=== PATIENT | female | born 1990 | race Caucasian/White ===

== ENCOUNTER 2016-12-29 08:52 | Inpatient (IN) | payer MEDICAID ==
[~2016-12-29] VITALS: Ht 157.5 cm; Wt 76.7 kg
[2016-12-29] MEDS ORDERED: IRON325 M1 PO (13:50)
[2016-12-29] MEDS ORDERED: PRENATAL 11 PO (13:50)
[2016-12-30] VITALS (12 sets, daily range): BP systolic 128–158; BP diastolic 71–99
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
[2016-12-30 06:19] LABS: BARBITURATES NEGATIVE (NEGATIVE); COCAINE NEGATIVE (NEGATIVE); METHADONE NEGATIVE (NEGATIVE); OXCYCODONE NEGATIVE (NEGATIVE); TETRAHYDROCANNABIONOL NEGATIVE (NEGATIVE); TRICYLIC ANTIDEPRESSANTS NEGATIVE (NEGATIVE)
--- NOTE | 2016-12-30 07:15 | NUR ---
PT RESTING, TRYING TO SLEEP. DISCUSSED PLAN OF CARE FOR TODAY, PT VERBALIZED UNDERSTANDING. STATES SHE DESIRES TO SLEEP AT THIS TIME. PT TO CALL IF SHE NEEDS ANYTHING.
--- NOTE | 2016-12-30 09:17 | NUR ---
IVF STARTED PER ORDER. RN CLIPPERS USED TO SHAVE SUPRAPUBIC AREA. DISCUSSED WITH PT THAT OR MIGHT WANT TO DO EARLIER, POSSIBLY AT 10:30AM. WAITING ON OR.
--- NOTE | 2016-12-30 10:00 | NUR ---
OR MADE US AWARE WILL BE DONE AT 12:30.
--- NOTE | 2016-12-30 11:30 | NUR ---
PEPCID AND REGLAN GIVEN AT THIS TIME IN PREPARATION FOR AT 1230. HOWEVER OR STAFF IS UP HERE AT THIS TIME TO GET PT THEY MOVED THE TO 1200. UNABLE TO DO NST BECAUSE OF EARLY TRANSFER OF THE PT TO MAIN OR DOWNSTAIRS. FHR WAS ULTRASOUND AT 135-145. IV BOLUS STARTED. BANUELOS WILL BE PLACED DOWNSTAIRS PER OR STAFF DUE TO EARLY PT REGIONAL DIRECTOR OF FINANCE.
--- NOTE | 2016-12-30 11:35 | NUR ---
PT LEFT TO MAIN OR DOWNSTAIRS AT THIS TIME WITH OR STAFF.
--- NOTE | 2016-12-30 14:45 | NUR ---
RECEIVED CARE OF PT. TRANSFERRED TO ROOM 207 VIA STRETCHER BY Gallito SKYRN AND EVENS SevillaRN. PT TRANSFERRED TO BED WITH COMPLAINT OF PAIN. RATING PAIN 8/10 AT INCISION. LIGHT LOCHIA NOTED, LÓPEZ CARE DONE IN BED. fUNDUS FIRM AT 2 ABOVE UMBILICUS. SCD'S APPLIED. ASSESSMENT CHARTED. PLAN OF CARE REVIEWED. PT ASKING FOR SODA. ICE WATER GIVEN. PT ENCOURAGED TO DRINK SMALL SIPS TO AVOID NAUSEA. VITAL SIGNS CHARTED. BANUELOS DRAINING CLEAR YELLOW URINE. ENCOURAGED TO COUGH AND DEEP BREATHE. INSTRUCTED TO MOVE TO SIDES WHILE IN BED. CALL LIGHT WITHIN REACH.
--- NOTE | 2016-12-30 16:45 | NUR ---
Pt with trickling at this time. Moderate rubra lochia noted. Fundus firm with massage, no blood clots. Pat care done in bed, clean pads applied. Fundus remains firm at 2 above umbilicus. No trickling of blood noted at this time. Pt instructed to call nurse if she feels trickling or gushing of fluid from perineum. Call light within reach. Significant other at bedside.
--- NOTE | 2016-12-30 18:08 | NUR ---
Pt tolerating full liquid dinner. Will continue to monitor.
--- NOTE | 2016-12-30 18:30 | NUR ---
CBC DRAWN FROM LEFT HAND. RESULTS PENDING. FAMILY IN ROOM AT THIS TIME.
--- NOTE | 2016-12-30 18:50 | NUR ---
REPORT GIVEN TO ONCOMING SHIFT. FAMILY IN ROOM.
--- NOTE | 2016-12-30 18:50 | NUR ---
REPORT RECEIVED FROM SINAN HOOKER RN ON PT STATUS. PT RESTING IN BED HER . STATES PAIN IS 5/10 ON RT LOWER ABDOMEN. OFFERED HEAT OR COLD PACK. REFUSES. RECEIVED TORADOL AT 1408 IN PACU. BANUELOS CATHETER DRAINING CLEAR YELLOW URINE. IV INFUSING PER MED PUMP AT 125CC/HR. SCD'S IN PLACE.
[2016-12-30 19:06] LABS: HEMATOCRIT 27.4 % (37.0-47.0); HEMOGLOBIN 9.1 g/dl (12.0-16.0); IMMATURE GRANULOCYTES 1.1 % (0.0-1.0); MEAN CELL VOLUME 91.6 fL CALC (80.0-100.0); MEAN CORPUSCULAR HGB 30.4 pG CALC (26.0-32.0); MEAN CORPUSCULAR HGB CONC 33.2 g/L CALC (32.0-36.0); NEUT# 9.86 thou/uL (2.00-7.15); RED BLOOD COUNT 2.99 mill/uL (4.20-5.60); RED CELL DISTRI WIDTH 14.6 % (11.5-15.5)
--- NOTE | 2016-12-31 02:01 | NUR ---
PT ASLEEP AT THIS TIME. NO SIGNS OF DISTRESS NOTED. RESPIRATIONS EVEN AND UNLABORED. ASSESSMENT DOCUMENTED. SAFETY MEASURES IN PLACE. CALL LIGHT WITHIN REACH.
--- NOTE | 2016-12-31 05:00 | NUR ---
PT AWAKE AND HAS NO COMPLAINTS. BED IN LOW POSITION AND CALL LIGHT WITHIN REACH. INFANT TO NURSERY.
--- NOTE | 2016-12-31 05:30 | NUR ---
PT. ASSISTED OOB TO VOID. STATED THAT SHE HAD MINIMAL PAIN AND FELT BETTER BEING OUT OF BED.BANUELOS CATH DRAINING CLEAR URINE TO BAG. PERICARE DEMONSTRATED AND PT. RETURNED DEMO. SATISFACTORILY. PT. TOLERATED BEING OUT OF BED FOR THE FIRST TIME SINCE SURGERY.
[2016-12-31 05:48] VITALS: BP 129/84
[2016-12-31 07:19] VITALS: BP 126/82
--- NOTE | 2016-12-31 08:20 | NUR ---
ASSESMENT IS COMPLETED: PT IS VERY WEEPY THIS AM, BANUELOS INTACT. C/O BEING CLAUSTROPHOBIC, WILL OPEN THE DOOR . IV SITE IS FREE FROM REDNESS OR EDEMA. FAMILY IN THE ROOM. CONITNUE TO OBSERVE AND MONITOR.
--- NOTE | 2016-12-31 12:00 | NUR ---
PT ABLE TO GET IN A SHOWER. AND REMOVED THE TAPE. HAS A LOW THRESHOLD FOR PAIN. FAMILY IN THE ROOM. CONITNUE TO OSBERVE AND MONITOR. PT DID VOID MODERATE AMOUNT OF BLOOD CLOTS. THEN WAS ABLE TO GET IN THE SHOWER.
--- NOTE | 2016-12-31 13:00 | NUR ---
PT CONTINUES TO WEEP DUE TO PAIN. GAVE AN ICE PACK TO HER PAIN AREA. THEN EXPLAINED TO TAKE OFF IN 20 MINUTES. THEN IN 30 MINUTES CAN APPLY HEAT TO THE AREA. VERBALIZED UNDERSTANDING
--- NOTE | 2016-12-31 14:13 | NUR ---
PAIN MEDICATION GIVEN AND ENCOURAGED TO AMBULATE. FEEDING INFANT AT THIS TIME,
[2016-12-31] MEDS ORDERED: PRE-NATAL PO (14:42)
[2016-12-31 15:23] VITALS: BP 161/84
[2016-12-31 15:44] VITALS: BP 138/87
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
--- NOTE | 2016-12-31 18:58 | NUR ---
RECEIVED BEDSIDE REPORT FROM BELINDA DE LEON RN ON PT STATUS. PT TRYING TO BREASTFEED . BED IN LOW POSITION AND CALL LIGHT WITHIN REACH. STATES PAIN IS 2/10. FAMILY AT BEDSIDE.
--- NOTE | 2016-12-31 18:58 | NUR ---
in bed attempting to breastfeed. admits to pain relief. family at bedside. end of shift report given to aparna woody.
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
[2016-12-31 22:11] VITALS: BP 141/91
--- NOTE | 2016-12-31 22:20 | NUR ---
PT REQUESTS STRONGER PAIN MEDICATION. MEDICATED WITH LORTAB. SEE MED E-MAR FOR DETAILS. USES RESTROOM. GAIT STEADY, SLOW AND EVEN. DENIES DIZZINESS. PT CONTINUES TO BE UPSET. HAS NO FAMILY OR FRIENDS WITH HER TONIGHT. CRYING FREQUENTLY TO BREASTFEED. THIS IS UPSETTING PT ALSO. PT HAS BLOOD BLISTER ON LEFT NIPPLE. USING LANOLIN CREAM. REASSURANCE GIVEN TO PT FROM ALBERTO HUFF.
--- NOTE | 2016-12-31 23:45 | NUR ---
PT SLEEPING. NO SIGNS OF DISTRESS. RESP EVEN AND UNLABORED. SLEEPING IN CRIB NEXT TO MOTHER'S BED.
--- NOTE | 2017-01-01 02:30 | NUR ---
PT COMPLAINS OF ABDOMINAL PAIN. MEDICATED WITH IBUPROFEN. NO OTHER COMPLAINTS. .
--- NOTE | 2017-01-01 06:08 | NUR ---
PT SLEEPING. NO SIGNS OF DISTRESS.
[2017-01-01 08:00] VITALS: BP 127/68
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
--- NOTE | 2017-01-01 14:48 | NUR ---
PT DISCHARGED WITH IN LAP. PT DENIES ANY NEEDS AND UNDERSTANDS DISCHARGE INSTRUCTIONS. PT WILL RETURN TO OFFICE FOR STAPLE REMOVAL IN 1 WEEK. PT KNOWS TO PICK HER PRESCRIPTIONS UP AT THE [facility].
== END 2017-01-01 14:55 | disposition home or self-care (01) | DRG 765 ==
LOC: OB 12-30 05:49 → EDUNIT# 12-30 12:30 → OB 12-30 12:30
PROC: 10D00Z1 Extraction of Products of Conception, Low, Open Approach (ICD-10-PCS; principal; 2016-12-30)
PROC: 0UB60ZZ Excision of Left Fallopian Tube, Open Approach (ICD-10-PCS; 2016-12-30)
DX: O34.211 Maternal care for low transverse scar from previous cesarean delivery (principal); O90.81 Anemia of the puerperium; D62 Acute posthemorrhagic anemia; N85.8 Other specified noninflammatory disorders of uterus; Z90.79 Acquired absence of other genital organ(s); Z3A.39 39 weeks gestation of pregnancy; Z37.0 Single live birth